=== PATIENT | female | born 1985 | race Caucasian/White ===

== ENCOUNTER 2020-09-11 10:19 | Observation (INO) | payer OTHER ==
[~2020-09-11] VITALS: Ht 162.6 cm; Wt 87.5 kg
[2020-09-11] MEDS ORDERED: PREN-217 PO (11:03)
[2020-09-11 11:21] VITALS: BP 120/86
== END 2020-09-11 13:53 | disposition home or self-care (01) ==
LOC: 4S 10:19
PROVIDERS: ADMIT Obstetrics & Gynecology; ATTEND Obstetrics & Gynecology
DX: Z34.93 Encounter for supervision of normal pregnancy, unspecified, third trimester (principal); Z3A.38 38 weeks gestation of pregnancy
CPT/HCPCS: 59025; 76811; 99219

== ENCOUNTER 2020-09-18 06:35 | Inpatient (IN) | payer OTHER ==
[~2020-09-18] VITALS: Ht 165.1 cm; Wt 87.5 kg
[~2020-09-18 06:35] MED LIST: PREN-217 PO
[2020-09-18] MEDS ORDERED: RINGERS SOLUTION,LACTATED 1,000 ML IV PRN (07:45)
[2020-09-18] MEDS ORDERED: OXYTOCIN 30 UNITS/LACT RINGERS 500 ML IV PRN ×3 (07:45→23:00)
[2020-09-18] MEDS ORDERED: TERBUTALINE SULFATE 1 MG/ML VIAL SQ PRN (07:45)
[2020-09-18] MEDS ORDERED: OXYTOCIN 30 UNITS/LACT RINGERS 500 ML IV ONE (07:45)
[2020-09-18] MEDS ORDERED: FentaNYL CITRATE-PF 100 MCG/2 ML VIAL IVP PRN (07:45)
[2020-09-18] MEDS ORDERED: CITRIC ACID/SODIUM CITRATE 30 ML SOLUTION UDCUP PO PRN (07:45)
[2020-09-18] MEDS ORDERED: METOCLOPRAMIDE HCL 5 MG/ML 2 ML VIAL IVP PRN (07:45)
[2020-09-18] MEDS ORDERED: OXYGEN THERAPY IH SCH (08:00)
[2020-09-18 08:34] LABS: BASOPHILS % (AUTO) 0.5 % (0.0-2.0); EOSINOPHILS % (AUTO) 0.3 % (1.0-6.0); HEMATOCRIT 37.6 % (36-46); HEMOGLOBIN 12.6 g/dL (12.0-16.0); LYMPHOCYTES # (AUTO) 2.1 K/uL (1.0-4.8); LYMPHOCYTES % (AUTO) 20.9 % (22.0-44.0); MEAN CORPUSCULAR HEMOGLOBIN 29.3 pg (26.0-34.0); MEAN CORPUSCULAR HGB CONC 33.6 G/dL (31.0-37.0); MEAN CORPUSCULAR VOLUME 87 fL (80-100); NEUTROPHILS # (AUTO) 6.8 K/uL (1.8-7.7); NEUTROPHILS % (AUTO) 68.3 % (40.0-70.0); PLATELET COUNT (AUTO)-OB 323 K/uL (150-450); RED BLOOD CELL COUNT(AUTO) 4.31 MIL/uL (4.00-5.20); RED CELL DISTRIBUTION WIDTH 15.5 % (11.5-14.5)
[2020-09-18] MEDS: RINGERS SOLUTION,LACTATED 1,000 ML IV SCH ×3 (08:40→20:40)
[2020-09-18] MEDS ORDERED: DINOPROSTONE 10 MG VAGINAL SUPPOSITORY VG ONE (09:30)
[2020-09-18 09:48] LABS: COVID AG,FIA SOURCE NASOPHARYNGEAL
[2020-09-18 14:12] VITALS: BP 113/72
[2020-09-18] MEDS ORDERED: MINERAL OIL 30 ML UDCUP VG ONE (15:45)
[2020-09-18] MEDS ORDERED: BUTORPHANOL TARTRATE 2 MG/ML VIAL IVP PRN (15:45)
[2020-09-18] MEDS ORDERED: -PHARMACY NOTE- MISC ONE ×2 (20:00→21:30)
[2020-09-18] MEDS ORDERED: BUPIVACAINE HCL/PF 0.25% 10 ML VIAL ONE (23:02)
[2020-09-18] MEDS ORDERED: ROPIVACAINE HCL/PF 0.2% 100 ML ED ONE (23:03)
[2020-09-18] MEDS ORDERED: DiphenhydrAMINE HCL 50 MG/ML VIAL IVP PRN (23:30)
[2020-09-18] MEDS ORDERED: NALBUPHINE HCL 10 MG/ML VIAL IVP PRN (23:30)
[2020-09-18] MEDS ORDERED: ONDANSETRON HCL 4 MG/2 ML VIAL IVP PRN (23:30)
[2020-09-19] MEDS ORDERED: LIDOCAINE 2%/EPI 1:200,000/PF 20 ML VIAL ONE (02:30)
[2020-09-19] MEDS ORDERED: BUPIVACAINE HCL/PF 0.5% 10 ML VIAL ONE (02:30)
[2020-09-19] MEDS ORDERED: RINGERS SOLUTION,LACTATED 1,000 ML IV ONE ×2 (05:34→15:00)
[2020-09-19] MEDS: RINGERS SOLUTION,LACTATED 1,000 ML IV SCH ×4 (05:55→17:50)
[2020-09-19] MEDS: ROPIVACAINE HCL/PF 0.2% 100 ML ED PRN ×2 (06:36→11:04)
[2020-09-19] MEDS ORDERED: MINERAL OIL 30 ML UDCUP VG ONE (11:45)
[2020-09-19] MEDS ORDERED: OXYTOCIN 10 UNITS/ML VIAL IM ONE (12:00)
[2020-09-19] MEDS ORDERED: KETOROLAC TROMETHAMINE 60 MG/2 ML VIAL IM ONE (12:00)
[2020-09-19] MEDS ORDERED: LIDOCAINE/PF 2% 5 ML VIAL INJ ONE (12:00)
[2020-09-19] MEDS ORDERED: ONDANSETRON HCL 4 MG/2 ML VIAL IVP ONE (12:00)
[2020-09-19] MEDS ORDERED: METOCLOPRAMIDE HCL 5 MG/ML 2 ML VIAL IVP ONE (15:00)
[2020-09-19] MEDS ORDERED: CITRIC ACID/SODIUM CITRATE 30 ML SOLUTION UDCUP PO ONE (15:00)
[2020-09-19] MEDS ORDERED: CYCLOBENZAPRINE HCL 10 MG TABLET PO PRN (15:15)
[2020-09-19] MEDS ORDERED: LANOLIN 7 GM OINTMENT TP PRN (15:15)
[2020-09-19] MEDS ORDERED: OXYTOCIN 30 UNITS/LACT RINGERS 500 ML IV ONE (15:15)
[2020-09-19] MEDS ORDERED: OxyCODONE HCL/ACETAMINOPHEN 5-325 MG TABLET PO PRN (15:15)
[2020-09-19] MEDS ORDERED: BUPIVACAINE HCL/PF 0.5% 30 ML VIAL ONE (15:26)
[2020-09-19] MEDS ORDERED: BUPIVACAINE HCL/PF 0.75% 10 ML VIAL ONE (15:27)
[2020-09-19] MEDS ORDERED: TRANEXAMIC ACID 1,000 MG/10 ML VIAL ONE (15:40)
[2020-09-19] MEDS ORDERED: TRANEXAMIC ACID 1,000 MG in DEXTROSE 5%-WATER 50 ML IV ONE (15:45)
[2020-09-19] MEDS ORDERED: ONDANSETRON HCL 4 MG/2 ML VIAL IVP PRN (16:00)
[2020-09-19] MEDS ORDERED: MORPHINE SULFATE 10 MG/ML SYRINGE IVP PRN (16:00)
[2020-09-19] MEDS ORDERED: FentaNYL CITRATE-PF 100 MCG/2 ML VIAL IVP PRN ×2 (16:00)
[2020-09-19] MEDS ORDERED: NALOXONE HCL 0.4 MG/ML VIAL IVP PRN (16:00)
[2020-09-19] MEDS ORDERED: HYDROmorphone 2 MG/ML SYRINGE IVP PRN (16:00)
[2020-09-19] MEDS ORDERED: NALBUPHINE HCL 10 MG/ML VIAL IVP PRN ×2 (16:00)
[2020-09-19] MEDS ORDERED: MEPERIDINE-PF 25 MG/ML VIAL IVP PRN (16:00)
[2020-09-19] MEDS ORDERED: DiphenhydrAMINE HCL 50 MG/ML VIAL IVP PRN (16:00)
[2020-09-19] MEDS: ACETAMINOPHEN 1000 MG/ISO-OSM 100 ML IV SCH (17:49)
[2020-09-19] MEDS ORDERED: OXYGEN THERAPY IH SCH ×3 (20:00)
[2020-09-19] MEDS: MAGNESIUM HYDROXIDE SUSPENSION 30 ML UDCUP PO SCH (21:00)
[2020-09-19] MEDS: KETOROLAC TROMETHAMINE 30 MG/ML VIAL IVP SCH (22:02)
[2020-09-20] MEDS: ACETAMINOPHEN 1000 MG/ISO-OSM 100 ML IV SCH (01:52)
[2020-09-20] MEDS: RINGERS SOLUTION,LACTATED 1,000 ML IV SCH (01:53)
[2020-09-20] MEDS: KETOROLAC TROMETHAMINE 30 MG/ML VIAL IVP SCH (04:06)
[2020-09-20 07:27] LABS: BASOPHILS % (AUTO) 0.3 % (0.0-2.0); EOSINOPHILS % (AUTO) 0.2 % (1.0-6.0); HEMATOCRIT 31.1 % (36-46); HEMOGLOBIN 10.3 g/dL (12.0-16.0); LYMPHOCYTES # (AUTO) 2.6 K/uL (1.0-4.8); LYMPHOCYTES % (AUTO) 12.4 % (22.0-44.0); MEAN CORPUSCULAR HEMOGLOBIN 29.3 pg (26.0-34.0); MEAN CORPUSCULAR VOLUME 89 fL (80-100); MONOCYTES # (AUTO) 1.9 K/uL (0.1-1.0); MONOCYTES % (AUTO) 8.9 % (2.0-9.0); NEUTROPHILS # (AUTO) 16.4 K/uL (1.8-7.7); NEUTROPHILS % (AUTO) 78.2 % (40.0-70.0); PLATELET COUNT (AUTO)-OB 233 K/uL (150-450); RED CELL DISTRIBUTION WIDTH 15.5 % (11.5-14.5)
[2020-09-20] MEDS: MAGNESIUM HYDROXIDE SUSPENSION 30 ML UDCUP PO SCH ×2 (08:23→21:00)
[2020-09-20] MEDS: OxyCODONE HCL/ACETAMINOPHEN 5-325 MG TABLET PO PRN (10:58)
[2020-09-20] MEDS: IBUPROFEN 800 MG TABLET PO PRN (16:21)
[2020-09-21] MEDS: IBUPROFEN 800 MG TABLET PO PRN (01:53)
[2020-09-21] MEDS: OxyCODONE HCL/ACETAMINOPHEN 5-325 MG TABLET PO PRN (07:04)
[2020-09-21] MEDS: MAGNESIUM HYDROXIDE SUSPENSION 30 ML UDCUP PO SCH (09:28)
[2020-09-21] MEDS ORDERED: PERCT PO (10:21)
[2020-09-21] MEDS ORDERED: IBUP-2071 PO (10:22)
[2020-09-21] MEDS ORDERED: FERR-89 PO (10:23)
[2020-09-21] MEDS ORDERED: DOCU-275 PO (10:24)
== END 2020-09-21 11:05 | disposition home or self-care (01) | DRG 788 ==
LOC: 4S 06:35 → PREOBSVTOIN 09-27 06:49
PROVIDERS: ADMIT Obstetrics & Gynecology; ATTEND Obstetrics & Gynecology
PROC: 10D00Z1 Extraction of Products of Conception, Low, Open Approach (ICD-10-PCS; principal; 2020-09-19)
DX: O82 Encounter for cesarean delivery without indication (principal); Z20.828 Contact with and (suspected) exposure to other viral communicable diseases; Z3A.39 39 weeks gestation of pregnancy; Z37.0 Single live birth
CPT/HCPCS: 86850; 86900; 86901; 86923; 87426; J0131; J0595; J0690; J1885; J2405; J2590; J2765; J2795; J3490; J7060; J7120